=== PATIENT | female | born 1945 | race Caucasian/White ===

== ENCOUNTER → 2016-12-12 | Outpatient (CLI) | payer OTHER ==
[~2016-12-12] MED LIST: ATENOLOL50 MG PO; BENICAR HCT 401 EACH PO; DULOXETINE HCL60 M1 PO; FOLIC ACID1 MG PO; HYDROCODON-ACE1 EAC9 PO; LINEZOLID600 MG PO; LYRICA PO; MELATONIN10 M2 PO; MELOXICAM15 MG PO; OXYCODONE-ACET1 EACH PO; PANTOPRAZOLE SO40 MG PO; XARELTO10 MG PO
--- NOTE | ~2016-12-12 | EKG ---
PATIENT: WINSTON HUFF UNIT #: [id number] Ventricular Rate: 68 BPM Atrial Rate: 68 BPM P-R Interval: 174 ms QRS Duration: 72 ms Q-T Interval: 366 ms QTC Calculation(Bezet): 389 ms P Emmalena: 51 degrees Calculated R Emmalena: 33 degrees Calculated T Emmalena: 62 degrees Diagnosis Line: Normal sinus rhythm Diagnosis Line: Low voltage QRS Diagnosis Line: Borderline ECG Diagnosis Line: No previous ECGs available Diagnosis Line: Confirmed by DIVYA WILKINSON MD ([id number]) on Diagnosis Line: 12/12/2016 4:40:21 PM INTERPRETING MD: MINH CONCEPCION
[2016-12-12 13:43] LABS: BUN/CREATININE RATIO 18.18; CALCIUM SERUM 10.2 mg/dL (8.4-10.2); CREATININE SERUM 1.1 mg/dL (0.6-1.4); GLOM FILT RATE Estimated 51.2 mL/min (>60); POTASSIUM 4.4 mmol/L (3.5-5.1)
== END | disposition home or self-care (01) ==
LOC: CAMB 11:18
PROVIDERS: Orthopaedic Surgery
DX: Z01.818 Encounter for other preprocedural examination (principal); M87.875 Other osteonecrosis, left foot
CPT/HCPCS: 36415; 80048; 85652; 86140; 93005

== ENCOUNTER 2016-12-19 10:48 | Inpatient (IN) | payer OTHER, MEDICARE ==
--- NOTE | ~2016-12-19 | HP ---
Unit #: [id number] #: [id number] Patient: WINSTON HUFF [id number] [address] [address] [id number] MR#: [id number] NAME: WINSTON HUFF. ROOM: Age: Sex: F Admission Date: 12/19/2016 : 1945 Attending Physician: Mayco Kirby M.D. Referring Physician: Mayco Kirby M.D. Primary Care Physician: Frank Delgado HISTORY AND PHYSICAL CHIEF COMPLAINT Left ankle pain and deformity. HISTORY OF PRESENT ILLNESS The patient is a 71-year-old female who has undergone multiple procedures by a hearing aid repairer from [place], [place] to include lateral column lengthening, ankle replacement, and attempted pantalar fusion all with rather devastating results. 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 The patient has failed conservative care. She has a non-plantigrade foot. She has pain with activities of daily living. She is therefore to undergo removal of all hardware and then to undergo tibiotalocalcaneal fusion using a laterally based plate with femoral head allograft and fibular autograft. PAST MEDICAL HISTORY Remarkable for cataracts, hypertension, rheumatoid arthritis, and hypercholesterolemia. HOME MEDICATIONS 1. Atenolol. 2. Benicar. 3. Celebrex. 4. Duloxetine. 5. Folate. 6. Humira pen. 7. Hydroxychloroquine sulfate. 8. Lyrica. 9. Oxycodone 7.5 mg p.o. several times a day as needed for pain. PAST SURGICAL HISTORY Left ankle replacement, left pantalar fusion, hysterectomy, knee replacement, oophorectomy, tonsillectomy, tubal ligation. ALLERGIES None. SOCIAL HISTORY The patient denies alcohol use. She is a nonsmoker. FAMILY HISTORY Arthritis, diabetes, and coronary artery disease. REVIEW OF SYSTEMS Unremarkable. Unit #: [id number] #: [id number] Patient: WINSTON HUFF PHYSICAL EXAMINATION VITAL SIGNS: Height 4 feet, 10 inches; weight 140 pounds; and BMI 29.2. GENERAL: Well developed, well nourished female in no acute distress. HEENT: Pharynx is clear. NECK: Supple without masses. HEART: Reveals a regular sinus rhythm without murmurs or gallops. LUNGS: Clear. ABDOMEN: Soft and nontender without masses or organomegaly. EXTREMITIES: Evaluation of the left foot shows marked pes planus with abduction of the forefoot and prominence of the medial malleolus. The patient has 30 degrees of hindfoot valgus. Ankle motion is surprisingly good with dorsiflexion of 10 degrees and plantar flexion of 25 degrees. Subtalar motion is absent. The first MTP joint motion is very limited. Sensation is intact. Pulses are intact. Motor exam is grossly normal. DIAGNOSTIC STUDIES IMAGING: Standing x-rays of the left ankle show 3 loose screws crossing the tibiotalar joint with erosion of the talar body. The talar head is still intact. IMPRESSION 1. Left talar avascular necrosis. 2. Left ankle joint pseudoarthrosis. 3. Retained left ankle hardware. 4. Leg length discrepancy, 2 cm, left less than right. 5. Retained cannulated ankle screws and lateral column lengthening metal wedge. 6. Rheumatoid arthritis. PLAN The patient has failed conservative care. She will therefore undergo removal of all hardware with tibiotalocalcaneal fusion using a laterally based OrthoHelix TTC plate and fibular autograft. We will use a femoral head allograft to restore height. She may require a Cotton procedure to restore forefoot position. This procedure was described along with a diagram. Risks were discussed to include bleeding, infection, nerve damage, need for further surgery in the future, prolonged recovery time, deep venous thrombosis, pulmonary embolism, nonunion, malunion, and need for possible hardware removal in the future. There is no guarantee of a normal foot. Patient understands she will have to be nonweightbearing for 3 months postoperatively. Dictated by Patricia Neal/jonathan TD: 12/19/2016 06:06 JOB #: [id number] Unit #: [id number] #: [id number] Patient: WINSTON HUFF HISTORY AND PHYSICAL Page 1 of 1 X Mar Kirby MD HISTORY AND PHYSICAL
--- NOTE | ~2016-12-19 | DS ---
Unit #: [id number] #: [id number] Patient: WINSTON HUFF [id number] [address] [place], [place] [address] [id number] I MR#: [id number] NAME: WINSTON HUFF. ROOM: 453 Age: 71 Sex: F Admission Date: 12/19/2016 : 1945 Discharge Date: 12/21/2016 Attending Physician: Mayco Kirby M.D. Referring Physician: Mayco Kirby M.D. Primary Care Physician: Frank Delgado DISCHARGE SUMMARY CHIEF COMPLAINT Left foot pain and deformity. HISTORY OF PRESENT ILLNESS The patient is a 71-year-old female with severe left foot pes abducto planovalgus secondary to multiple operations done elsewhere. She now has ankle joint pseudoarthroses with complete collapse of the talus and marked heel valgus with retained ankle hardware. The patient has a nonplantigrade foot and wears a [place]-type boot. She has a significant leg length discrepancy. Radiographs show collapse of a talar body. The patient is therefore to undergo revision tibiotalocalcaneal fusion using femoral head allograft. HOSPITAL COURSE The patient was taken to the operating room on the date of admission where she underwent left tibiotalocalcaneal fusion with femoral head allograft, distal fibular bone graft, removal of retained foot and ankle hardware, and cotton procedure. The patient had a stable postoperative course. Pain was controlled with oral Percocet and IV morphine HYDROPULPER. She was seen by physical therapy on a daily basis and instructed on how to remain nonweightbearing on her effected side. Dressing was changed on second postoperative day. Her wounds were healing well but she still had loss of sensation on the plantar aspect of the foot. She was ready for discharge on the second postoperative day. FINAL DIAGNOSES 1. Left ankle pseudoarthrosis. 2. Left ankle retained hardware. 3. Severe left foot pes abducto planovalgus deformity. 4. Left talar avascular necrosis. PLAN 1. The patient is discharged home. She will keep the dressing clean, dry, and intact. She will continue ice and elevation and remain strictly nonweightbearing for a total of three months. 2. Followup in my office in 10-14 days for dressing change, suture removal, and cast application. 3. Discharge medications remain the same as her home medications with the addition of [place] 7.5/325 one p.o. q.8 hours p.r.n. pain dispense 50 and Xarelto 10 mg p.o. daily for 12 days. Unit #: [id number] #: [id number] Patient: WINSTON HUFF Dictated by.Patricia Méndez/mary TD: 12/21/2016 09:58 JOB #: [id number] DISCHARGE SUMMARY Page 1 of 1 X Mar Kirby MD X DISCHARGE SUMMARY
--- NOTE | ~2016-12-19 | OR ---
Unit #: [id number] #: [id number] Patient: WINSTON HUFF [id number] [address] [place], [place] [address] [id number] I MR#: [id number] NAME: WINSTON HUFF. ROOM: [facility] Date of Procedure: 12/19/2016 Admission Date: 12/19/2016 Surgeon: Mayco Kirby M.D. : 1945 Attending Physician: Mayco Kirby M.D. Referring Physician: Mayco Kirby M.D. Primary Care Physician: Frank Delgado OPERATIVE REPORT PREOPERATIVE DIAGNOSES 1. Left talar avascular necrosis. 2. Left ankle degenerative arthritis. 3. Severe left pes abducto planovalgus. 4. Left ankle retained hardware. POSTOPERATIVE DIAGNOSES 1. Left talar avascular necrosis. 2. Left ankle degenerative arthritis. 3. Severe left pes abducto planovalgus. 4. Left ankle retained hardware. PROCEDURES PERFORMED 1. Left tibiotalocalcaneal fusion with femoral head allograft (69125, 59121). 2. Left distal fibular bone graft (56205). 3. Left ankle and foot retained hardware removal (29608). 4. Left cotton procedure (dorsal opening wedge osteotomy of medial cuneiform) (74837). ASSISTANTS EMELIA Delvalle and EMELIA Kerr. ANESTHESIA Popliteal saphenous block and general. INDICATIONS FOR SURGERY The patient is a 71-year-old female with severe left foot pes abducto planovalgus deformity secondary to multiple operations done elsewhere. She now has ankle joint pseudarthrosis with complete collapse of the talus and marked heel valgus with retained ankle hardware. The patient has a non-plantigrade foot, which has not responded to treatment with a custom AFO. The patient is therefore to undergo revision tibiotalocalcaneal fusion using femoral head allograft with removal of hardware. We utilized fibular bone for grafting and remove her hardware that was previously placed. DESCRIPTION OF PROCEDURE The patient underwent popliteal saphenous block. She was taken to the operating room and placed in supine position and general anesthetic was induced. The left ankle was identified as the correct operative extremity during the time-out procedure. The IV antibiotic protocol was followed. Unit #: [id number] #: [id number] Patient: WINSTON HUFF The left leg was prepped and draped in the usual sterile fashion. The leg was exsanguinated and the thigh tourniquet inflated to 300 mmHg. The old lateral longitudinal incision over the fibula was utilized for the incision. This was extended proximally 10 cm crossing the tip of the fibula and extending down along the lateral aspect of the calcaneus using the old scar. The fibula was exposed with subperiosteal dissection. The previously placed cannulated screw was identified and removed. The fibula was then morselized with an acetabular reamer and this was used to remove the fibula. The fibular shaft was cut 10 cm proximal to the ankle joint and the fibula was then morselized to be utilized for bone graft later in the case. A second cannulated screw was identified under mini C-arm fluoroscopic control, and the pin was placed into the center of the screw. The screw was removed. The third cannulated screws fixating the ankle joint was in a very difficult location to access and would require us to bisect directly over the neurovascular bundle medially, therefore the ankle joint was opened and the screw was loosened using an osteotome and curved curettes. With some difficulty, we were able to retrieve the screw through the ankle joint. The previously placed metal wedge in the anterior calcaneus for lateral column lengthening was then removed with a power osteotome. Beginning with a 36 mm diameter acetabular reamer, the defect in the ankle joint was reamed from lateral, reaming the tibia, calcaneus, talar neck, and medial malleolus. This was sequentially reamed up to a 44 mm diameter. The fresh frozen femoral head allograft was then secured with two crossed Steinmann pins and humeral head counter reamers were used to ream the cartilage and cortical bone off the femoral head. This corresponded to the diameter which was used to ream the ankle joint, so we used a 44 mm diameter acetabular reamer in the ankle joint and a 44 mm diameter counter reamer for the femoral head and there was a perfect fit when the femoral head was placed into the defect with the flat portion of the neck facing laterally. The ankle was then positioned appropriately in neutral dorsiflexion and 5 degrees of heel valgus and then pinned provisionally with a smooth Steinmann pin placed through the heel across the graft into the tibia. An OrthoHelix TTC plate was applied laterally and fixated with one 4.5 mm diameter screw in the distal tibia. An OrthoHelix 8.0 mm diameter cannulated screw was then placed through the most distal hole in the plate purchasing the calcaneus of the graft and the medial malleolus. Excellent fixation was achieved. Additional screws were then placed in the calcaneus in the graft and into the distal tibia, all 4.5 mm diameter nonlocking cortical screws. A 4 mm bur was then used to decorticate the anterior distal tibial cortex and the superior dorsal aspect of the remaining talus. The morselized bone graft was then laid anteriorly along the ankle. In a similar fashion, the bur was used to decorticate the posterior distal tibia and superior calcaneus and again morselized bone graft was laid posteriorly to the ankle fusion site. Intraoperative C-arm fluoroscopy documented satisfactory graft position. The foot rested in 10 degrees of forefoot varus, therefore a cotton procedure was required. A dorsal longitudinal incision was then made over the medial cuneiform. Subcutaneous tissue was divided. The extensor hallucis longus tendon was retracted. A K-wire was placed in a center-center position in the medial cuneiform and used as a guide to make Unit #: [id number] #: [id number] Patient: WINSTON HUFF a dorsal to plantar osteotomy in the medial cuneiform. This was opened with the power osteotome. The SpeedDate metal 6 mm diameter cotton wedge was impacted into place and the forefoot was in rectus position. All wounds were copiously irrigated. Tourniquet was released with a total tourniquet time of #1, 1 hour 10 minutes and #2, 40 minutes after a 90-minute rest. The deep tissues were closed with 2-0 Vicryl. Subcutaneous tissue was closed with 3-0 Vicryl. Skin was closed with 3-0 nylon horizontal mattress and vertical mattress sutures. Xeroform gauze, dressing, sponges, Webril, and a posterior fiberglass splint were applied. The patient was then transported to the recovery room in stable condition. ESTIMATED BLOOD LOSS 300 mL. COMPLICATIONS None. SPECIMENS None. TOURNIQUET TIME Total was 1 hour 50 minutes. Dictated byAmor Kirby M.D. RTH/roxana TD: 12/20/2016 02:20 JOB #: [id number] OPERATIVE REPORT Page 1 of 1 X Mar Kirby MD PROCEDURE OPERATIVE NOTE
[~2016-12-19 10:48] MED LIST changes: -LINEZOLID600 MG PO; -OXYCODONE-ACET1 EACH PO; -PANTOPRAZOLE SO40 MG PO; -XARELTO10 MG PO
[2016-12-19 22:25] LABS: HEMATOCRIT 31.6 % (35.0-45.0); HEMOGLOBIN 10.2 gm/dL (12.0-16.0)
[2016-12-20 03:26] LABS: HEMATOCRIT 31.2 % (35.0-45.0)
[2016-12-21] MEDS ORDERED: XARELTO10 MG PO (10:17)
[2017-01-19] MEDS ORDERED: PANTOPRAZOLE SO40 MG PO (14:50)
[2017-01-19] MEDS ORDERED: LINEZOLID600 MG PO (14:50)
== END 2016-12-21 12:50 | disposition home or self-care (01) | DRG 493 ==
LOC: CSUR 10:48 → CPACUOF 17:02 → C4B 17:14 → CSUR 17:14 → CPACUOF 17:14 → C4B 12-21 12:50 → CSUR 01-30 10:00
PROVIDERS: Orthopaedic Surgery
PROC: 0SGJ04Z Fusion of Left Tarsal Joint with Internal Fixation Device, Open Approach (ICD-10-PCS; 2016-12-19)
PROC: 0SGJ04Z Fusion of Left Tarsal Joint with Internal Fixation Device, Open Approach (ICD-10-PCS; 2016-12-19)
PROC: 0SGJ07Z Fusion of Left Tarsal Joint with Autologous Tissue Substitute, Open Approach (ICD-10-PCS; 2016-12-19)
PROC: 0SGJ07Z Fusion of Left Tarsal Joint with Autologous Tissue Substitute, Open Approach (ICD-10-PCS; 2016-12-19)
PROC: 0SGJ07Z Fusion of Left Tarsal Joint with Autologous Tissue Substitute, Open Approach (ICD-10-PCS; 2016-12-19)
PROC: 0SPG04Z Removal of Internal Fixation Device from Left Ankle Joint, Open Approach (ICD-10-PCS; 2016-12-19)
PROC: 0QBM0ZZ Excision of Left Tarsal, Open Approach (ICD-10-PCS; 2016-12-19)
PROC: 0SGJ04Z Fusion of Left Tarsal Joint with Internal Fixation Device, Open Approach (ICD-10-PCS; principal; 2016-12-19 13:30)
PROC: 0QBK0ZZ Excision of Left Fibula, Open Approach (ICD-10-PCS; 2016-12-19 13:30)
DX: M87.872 Other osteonecrosis, left ankle (principal); M96.0 Pseudarthrosis after fusion or arthrodesis; I10 Essential (primary) hypertension; Y83.8 Other surgical procedures as the cause of abnormal reaction of the patient, or of later complication, without mention of misadventure at the time of the procedure; Y79.8 Miscellaneous orthopedic devices associated with adverse incidents, not elsewhere classified; H26.9 Unspecified cataract; M06.9 Rheumatoid arthritis, unspecified; E78.00 Pure hypercholesterolemia, unspecified; Z96.662 Presence of left artificial ankle joint; Z90.710 Acquired absence of both cervix and uterus; Z98.51 Tubal ligation status; Q66.89 Other specified congenital deformities of feet; M21.42 Flat foot [pes planus] (acquired), left foot; M79.7 Fibromyalgia
CPT/HCPCS: 85014; 85018; 97116; 97161; 97530; C1713; C1776; G8978-GP; G8979-GP; G8980-GP; J0690; J2250; J2270; J2370; J2405; J2795; J3010

== ENCOUNTER → 2017-01-18 | Outpatient (CLI) | payer OTHER ==
[~2017-01-18] MED LIST changes: +LINEZOLID600 MG PO; +OXYCODONE-ACET1 EACH PO; +PANTOPRAZOLE SO40 MG PO; +XARELTO10 MG PO
[2017-01-18 13:13] LABS: BASOPHIL# 0.2 X10e3 (0-0.3); BASOPHIL% 1.3 % (0-2.5); EOSINOPHIL# 0.5 X10e3 (0-0.7); EOSINOPHIL% 3.4 % (0.0-7.0); HEMATOCRIT 33.2 % (35.0-45.0); HEMOGLOBIN 10.5 gm/dL (12.0-16.0); LYMPHOCYTE# 2.7 X10e3 (1.0-3.5); LYMPHOCYTE% 19.6 % (17.0-45.0); MEAN CELL VOLUME 87.5 FL (83-96); MEAN CORPUSCULAR HEMOGLOBIN 27.7 PG (28-34); MEAN CORPUSCULAR HGB CONC 31.7 g/dL (30-36); MEAN PLATELET VOLUME 9.5 FL (6.5-11.5); MONOCYTE# 1.1 X10e3 (0-1.0); MONOCYTE% 8.2 % (3.0-12.0); NEUTROPHIL# 9.3 X10e3 (1.5-7.1); NEUTROPHIL% 67.5 % (40-75); PLATELET COUNT 308 X10e3 (140-420); RED BLOOD COUNT 3.79 X10e (3.90-5.30); RED CELL DISTRIBUTION WIDTH 15.7 % (11.0-15.5); WHITE BLOOD COUNT 13.7 X10e3 (4.0-10.5)
[2017-01-18 13:14] LABS: DIFF IND NO
== END | disposition home or self-care (01) ==
LOC: CLAB 12:31
PROVIDERS: Orthopaedic Surgery
DX: T81.4XXA Infection following a procedure, initial encounter (principal)
CPT/HCPCS: 36415; 85025; 85652; 86140

== ENCOUNTER 2017-01-23 09:35 | Inpatient (IN) | payer OTHER ==
--- NOTE | ~2017-01-23 | OR ---
Unit #: [id number] #: [id number] Patient: WINSTON HUFF [id number] [address] [place], [place] [address] [id number] I MR#: [id number] NAME: WINSTON HUFF. ROOM: [facility] Date of Procedure: 01/23/2017 Admission Date: 01/23/2017 Surgeon: Mayco Kirby M.D. : 1945 Attending Physician: Mayco Kirby M.D. Referring Physician: Mayco Kirby M.D. Primary Care Physician: Frank Delgado OPERATIVE REPORT PREOPERATIVE DIAGNOSES Postoperative left lateral ankle wound infection. POSTOPERATIVE DIAGNOSIS Postoperative left lateral ankle wound infection. PROCEDURES PERFORMED 1. Left lateral ankle wound debridement and irrigation (77099). 2. Left lateral ankle wound vacuum assisted closure (wound VAC) application (27945). NEGATIVE RETOUCHER None. ANESTHESIA General. INDICATIONS FOR SURGERY The patient is a 71-year-old female with a history of multiple operations on the left ankle culminating in a left tibial talocalcaneal fusion using a femoral head allograft 5 weeks ago. The patient has now developed a dehiscence of her lateral wound with an opening measuring about 5 cm x 2 cm and extension deep into the operative site. The patient is therefore to undergo formal debridement and cultures have grown methicillin-resistant staphylococci aureus. DESCRIPTION OF PROCEDURE The patient was taken to the operating room following marking of her leg in the preoperative anesthesia holding area. She was placed in supine position. General anesthetic was induced. The left leg was again identified as the correct operative location. The left leg was then prepped and draped in the usual sterile fashion. The antibiotic protocol was followed. The edges of the wound were sharply debrided. All and infected tissue in the wound was removed. The plate was exposed in the wound. There was a large amount of bone graft which had been placed posterior to the distal tibia, which was also removed with the rongeur. Aerobic and anaerobic cultures were taken. The wound was then copiously irrigated with 3 L of pulse lavage. The wound VAC was then applied laterally and satisfactory seal was documented. The ankle was then dressed with dressing sponges, cast padding, and Julio wrap. Unit #: [id number] #: [id number] Patient: WINSTON HUFF The patient was then transported to the recovery room in stable condition. ESTIMATED BLOOD LOSS Minimal. COMPLICATIONS None. SPECIMENS Cultures. TOURNIQUET TIME Zero. PLAN The patient will be maintained nonweightbearing in a Cam boot. We will closely follow her wound. She may require removal of all hardware with placement of an external fixator. If her wound does not rapidly improve, I am concerned about the exposure of hardware and in the face of infected hardware, she will most likely require removal of all hardware and placement of an external fixator to allow completion of her fusion. We will follow closely during this hospitalization and treated with IV antibiotics accordingly. Dictated byPatricia Abernathy/roxana TD: 01/24/2017 07:40 JOB #: [id number] OPERATIVE REPORT Page 1 of 1 X Mar Kirby MD X PROCEDURE OPERATIVE NOTE
--- NOTE | ~2017-01-23 | OR ---
Unit #: [id number] #: [id number] Patient: WINSTON HUFF [id number] [address] [place], [place] [address] [id number] MR#: [id number] NAME: WINSTON HUFF. ROOM: [facility] Date of Procedure: 01/30/2017 Admission Date: 01/23/2017 Surgeon: Mayco Kirby M.D. : 1945 Attending Physician: Mayco Kirby M.D. Referring Physician: Mayco Kirby M.D. Primary Care Physician: Frank Delgado OPERATIVE REPORT PREOPERATIVE DIAGNOSES 1. Left ankle infected hardware. 2. Left ankle postoperative wound dehiscence. 3. Status post left tibial talocalcaneal fusion 6 weeks ago. POSTOPERATIVE DIAGNOSES 1. Left ankle infected hardware. 2. Left ankle postoperative wound dehiscence. 3. Status post left tibial talocalcaneal fusion 6 weeks ago. PROCEDURE PERFORMED 1. Left ankle hardware removal (). 2. Left ankle hybrid external fixator application. 3. Left ankle irrigation and debridement (55241). 4. Left ankle application wound vacuum assisted closure device. ASSISTANTS Aleyda Shahid Clymer. ANESTHESIA General. INDICATIONS FOR SURGERY The patient is a 71-year-old female, who underwent left tibial talocalcaneal fusion using femoral head allograft 6 weeks ago. She then experienced a wound dehiscence with wound infection. She was treated with wound debridement and application of wound VAC. Cultures ultimately grew methicillin-resistant Staph aureus. She has been on IV antibiotics. She now has a 5 cm diameter wound with exposed hardware. She is therefore to undergo plate removal and application of a fixator. DESCRIPTION OF PROCEDURE The patient was taken to the operating room and placed in supine position. General anesthetic was induced. The left ankle was identified as the correct operative location. The IV antibiotic protocol was not followed. The left leg was then prepped and draped in the usual sterile fashion. The leg was exsanguinated with gravity and the thigh tourniquet inflated to 300 mmHg. A lateral longitudinal incision was opened proximally and the plate was removed with small and large star screwdrivers. The large cannulated screw running from the posterolateral heel into the tibia was also removed through a separate stab incision. Aerobic and anaerobic cultures were then taken. Aggressive debridement of the wound was then Unit #: [id number] #: [id number] Patient: WINSTON HUFF performed with a rongeur. The wound was then irrigated with 3 L of normal saline pulse lavage. The wound was then closed proximally as much as possible with 2-0 nylon [id number] sutures. This left a defect measuring about 5 cm x 3 cm x 2 cm in depth. The Julio PlusFourSixuy hybrid external fixator foot frame was then applied. A circular ring was placed around the tibia and fixated to the tibia with 2 half pins, one was straight anterior to posterior and a second half pin was placed from anteromedial to posterolateral. The foot plate was then positioned appropriately. The calcaneal pin was placed using Kirk wire from anterolateral to posteromedial calcaneus and this was then tensioned appropriately to 120 kg of tension. A second smoothed small wire was placed from lateral to medial in the posterosuperior calcaneus and this was tensioned to 125 kg and tightened. A third wire was then placed across the forefoot purchasing the metatarsal shafts, 1 through 3. This smooth pin was tensioned to 125 kg and tightened. This was placed to ensure that the ankle did not rest in equinus. All bolts and nuts were then tightened. The foot appeared to be stable. A wound VAC was then applied with silver impregnated sponge. This was cut to fit the defect and then fixed to the skin with appropriate adhesive coverings. An excellent seal was obtained. Additional Xeroform gauze, dressing, sponges, and Julio wraps were applied. The patient was then transported to the recovery room in stable condition. ESTIMATED BLOOD LOSS Minimal. COMPLICATIONS None. SPECIMENS Cultures. TOURNIQUET TIME Approximately 40 minutes. Dictated byPatricia Abernathy/roxana TD: 01/31/2017 05:03 JOB #: [id number] OPERATIVE REPORT Page 1 of 1 X Mar Kirby MD X PROCEDURE OPERATIVE NOTE
--- NOTE | ~2017-01-23 | CO ---
Unit #: [id number] #: [id number] Patient: WINSTON HUFF [id number] [address] [place], [place] [address] [id number] MR#: [id number] NAME: WINSTON HUFF. ROOM: [facility] Age: 71 Sex: F Admission Date: 01/23/2017 : 1945 Attending Physician: Mayco Kirby M.D. Primary Care Physician: Frank Delgado Consultation Date: 01/24/2017 CONSULTATION REPORT REASON FOR CONSULTATION Left ankle infection. HISTORY OF PRESENT ILLNESS This is a 71-year-old female who has had seven surgeries within the last four years for a left ankle and flat foot. The patient reports approximately five weeks ago she had a left tibiotalocalcaneal fusion with femoral head allograft. The patient reports that she had some difficulty with wound healing of her ankle incision. The patient followed up with the surgical team and she had some dehiscence of her wound and cultures were growing MRSA and Enterobacter. The patient was placed on antibiotics but he is unaware of the name. The patient was placed on antibiotics but she is unaware of the name. The patient is status post debridement of the wound yesterday and she was placed on a wound vac. She has continued to get vancomycin and she has been given Kefzol also for the perioperative period. ID was asked to evaluate for further antibiotic management. On discussion with patient, she also reports that she has had some intermittent fevers at home that usually present in the evening up to 102 degrees Fahrenheit. She denies any shortness of breath, chest pain, nausea, vomiting, diarrhea or other wounds. PAST MEDICAL HISTORY 1. Cataracts. 2. Hypertension. 3. Rheumatoid arthritis. 4. Hypercholesterolemia. MEDICATIONS Vancomycin. Other home medications also include Humira. ALLERGIES No known allergies. PAST SURGICAL HISTORY Includes: 1. Multiple ankle surgeries. 2. Knee replacement. 3. Oophorectomy. 4. Tonsillectomy. 5. Tubal ligation. SOCIAL HISTORY The patient denies any tobacco or alcohol abuse. Unit #: [id number] #: [id number] Patient: WINSTON HUFF REVIEW OF SYSTEMS Negative except for as previously mentioned in the History of Present Illness. PHYSICAL EXAMINATION VITAL SIGNS: Temperature is 98.7 with a T-max on admission of 101.5, pulse of 78, blood pressure 128/52 and respiratory rate of 16. GENERAL: This is a no apparent distress female who is resting in the bed comfortably. HEENT/NECK: Her pupils are equal. Her neck is supple. CARDIOVASCULAR: S1, S2. Regular rate and rhythm. PULMONARY: Clear to auscultation bilaterally with no wheezes or rhonchi noted. ABDOMEN: Positive bowel sounds. Soft and nontender. EXTREMITIES: No clubbing or cyanosis. Left ankle is currently in a wound vac. She is able to move her toes up and down. She is also in a brace. DIAGNOSTIC STUDIES LABORATORY: BUN 13, creatinine 1.0, sodium 136, potassium 4.4, chloride 101, CO2 26. Last CRP was 7.9. White blood cell count 13.7, hemoglobin 8.8, hematocrit 27.4, platelets 308 and sed rate 100. Wound cultures from the in the operating room showed Gram-negative rods and Staph aureus. January 15 cultures showed Enterobacter sensitive to cefepime and MRSA with an ABEL of 1. There is no current diagnostic imaging at this time. IMPRESSION This is a 71-year-old female status post multiple ankle surgeries, most recently five weeks ago with a calcaneal talotibial fusion. The patient had some delayed wound healing maybe due to her rheumatoid arthritis and use of biological agents. The patient has developed a polymicrobial infection with MRSA and Enterobacter. She is now status post OR with wound vac placement yesterday. OR cultures are showing both Staph aureus which is suspected to be MRSA and Gram-negative rods which will most likely be Enterobacter per her previous cultures. At this time, would like to continue vancomycin as started by orthopedic surgery and also add Rifampin and, in addition, for her Enterobacter will add cefepime. Patient will need to be followed along closely and I have discussed with the orthopedic team who are also considering removal of all of her hardware depending on patient's clinical response in the next few days. Thank you for allowing us to participate in the care of this patient and further recommendations to follow pending patient's clinical course. Dictated by... Vanda Blankenship A.P.R.N. for Hola Alegria M.D. Andrew TD: 01/24/2017 09:07 JOB #: [id number] Unit #: [id number] #: [id number] Patient: WINSTON HUFF CONSULTATION REPORT Page 1 of 1 X X CONSULTATION REPORT
--- NOTE | ~2017-01-23 | HP ---
Unit #: [id number] #: [id number] Patient: WINSTON HUFF [id number] [address] [place], [place] [address] [id number] O MR#: [id number] NAME: WINSTON HUFF ROOM: Age: Sex: F Admission Date: 01/23/2017 : 1945 Attending Physician: Mayco Kirby M.D. Referring Physician: Mayco Kirby M.D. Primary Care Physician: Frank Delgado HISTORY AND PHYSICAL CHIEF COMPLAINT Left ankle infection. HISTORY OF PRESENT ILLNESS The patient is a 71-year-old female who underwent left tibiotalar calcaneal fusion using a femoral head allograft five weeks ago. She now has worsening open wound on the lateral aspect of the ankle with wound dehiscence and is growing methicillin resistant Staph aureus. She is therefore, admitted for formal debridement. PAST MEDICAL HISTORY Cataracts, hypertension, rheumatoid arthritis, hypercholesterolemia. HOME MEDICATIONS Atenolol, Benicar, Celebrex, duloxetine, folate, Humira pen, hydroxychloroquine, Lyrica and oxycodone. She is also taking Zyvox. ALLERGIES None. PAST SURGICAL HISTORY Multiple left ankle surgeries to include ankle replacement, pantalar fusion, tibiotalar calcaneal fusion with femoral head allografts, knee replacement, oophorectomy, tonsillectomy, tubal ligation. ALLERGIES None. SOCIAL HISTORY The patient is a nonsmoker and nondrinker. She is . FAMILY HISTORY Arthritis, diabetes, coronary artery disease. REVIEW OF SYSTEMS Unremarkable. PHYSICAL EXAMINATION VITAL SIGNS: Height 4'10", weight 140 pounds, BMI 29. GENERAL: Well developed, well nourished female in no acute distress. Pharynx is clear. NECK: Supple without masses. HEART: Regular sinus rhythm without murmurs, or gallops. LUNGS: Clear. Unit #: [id number] #: [id number] Patient: WINSTON HUFF ABDOMEN: Soft and nontender without masses or organomegaly. EXTREMITIES: Evaluation of the left foot demonstrates the ankle to be fused in neutral position. Heel position is neutral. She has a 6 cm diameter wound overlying bilateral ankle, which extends deeply. There is no lymphangitis. There is mild cloudy drainage. Pulses are intact. Sensation is decreased on the dorsal and plantar aspect of the left foot. ADMITTING DIAGNOSIS Left lateral ankle wound dehiscence with ankle infection. PLAN The patient is admitted for formal operative debridement. Hardware will be left intact. Will make a decision regarding application of wound VAC. The procedure was described, along with risks of persistent infection, nerve damage, need for further surgery in the future, prolonged recovery time. She understands the above risks and agrees to proceed. Dictated by Patricia Neal/janeth TD: 01/22/2017 08:47 JOB #: [id number] HISTORY AND PHYSICAL Page 1 of 1 X Mar Kirby MD X HISTORY AND PHYSICAL
--- NOTE | ~2017-01-23 | DS ---
Unit #: [id number] #: [id number] Patient: WINSTON HUFF [id number] [address] [place], [place] [address] [id number] I MR#: [id number] NAME: WINSTON HUFF. ROOM: [facility] Age: 71 Sex: F Admission Date: 01/23/2017 : 1945 Discharge Date: 02/01/2017 Attending Physician: Mayco Kirby M.D. Referring Physician: Mayco Kirby M.D. Primary Care Physician: Frank Delgado DISCHARGE SUMMARY CHIEF COMPLAINT Left ankle infection. HISTORY OF PRESENT ILLNESS The patient is a 71-year-old female who underwent left tibiotalocalcaneal fusion using a femoral head allograft five weeks prior to admission. The patient now has a lateral wound dehiscence with exposed plate. She has had cultures which grew methicillin resistant Staph aureus. She is therefore admitted for formal debridement and possible hardware removal. HOSPITAL COURSE The patient was taken to the operating room on the date of admission where she underwent wound debridement and application of a wound vac. The wound measured 5 cm x 5 cm and 2 cm in depth. Infectious disease was then consulted. Initial preoperative cultures grew MRSA and Enterobacter cloacae. Intraoperative cultures grew Acinetobacter and methicillin resistant Staph aureus. Infectious disease data management consultant placed her on vancomycin and cefepime. A PICC line was placed. It was then decided to have the patient return to the operating room on 01/30/2017 for removal of the plate and placement of a Hybrid external fixator. We replaced the wound vac at that time. Her dressing was changed on the second postoperative day and the wound appeared to be closing well but she still had exposed bone. There was no evidence of ongoing infection at that time. A sterile wet-to-dry dressing was applied on the second postoperative day in preparation for her discharge. Her hemoglobin was 7.9, hematocrit 24.9, white blood cell count 7.5 thousand. Cultures from her second procedure grew no bacteria. FINAL DIAGNOSES 1. Left lateral ankle postoperative wound infection with infected hardware. 2. Five weeks status post left tibiotalocalcaneal fusion with femoral head allograft. DISPOSITION/RECOMMENDATIONS 1. The patient is discharged to rehab. She will stay non-weight bearing on the left leg. She will keep the leg elevated. 2. Pin care should be performed with sterile tip cotton applicators once a day around all pin sites. 3. I am aware of the pressure ulcer on the dorsal mid foot. Sterile dressing will be kept in place using dry gauze. 4. A would vac should be applied at the time of her admission to rehab and this wound vac should be changed every three days. Unit #: [id number] #: [id number] Patient: WINSTON HUFF MEDICATIONS The patient's discharge medications are as follows: 1. Lyrica 150 mg p.o. b.i.d. 2. Atenolol 50 mg p.o. q. a.m. 3. Percocet 5/325, one or two p.o. q.4-6 hours p.r.n. pain. 4. Pantoprazole 40 mg p.o. b.i.d. 5. Cefepime 2 g IV q.8 hours through PICC line. 6. Vancomycin 1.25 g IV daily. Follow up in my office in 1-14 days for wound evaluation. Call [phone] to make the appointment. If there are any questions regarding the patient's wounds, please contact Dr. Kirby, . Dictated byAmor Kirby M.D. ARYA/catia TD: 02/01/2017 11:15 JOB #: [id number] DISCHARGE SUMMARY Page 1 of 1 X Mar Kirby MD X DISCHARGE SUMMARY
--- NOTE | ~2017-01-23 | XA166 ---
[facility] A Service of [facility] RADIOLOGY TEXT RESULTS PATIENT: WINSTON HUFF LOCATION: [facility] 466 : [birth year] UNIT #: [id number] AGE: [address]: Mar Kirby MD SEX: F ORDER DR: [id number] [facility] [address] [place], [place] [address] [id number] I MR#: [id number] Acc #: [id number] NAME: WINSTON HUFF : 1945 SEX: F STUDY DATE/TIME: 01/24/2017 14:13 UNIT: [facility] ROOM: [facility] STUDY DESCRIPTION: XA PICC Line Placement WO Port Attending Physician: Mayco Kirby M.D. Referring Physician: Mayco Kirby M.D. Ordering Physician: Mayco Kirby M.D. Primary Care Physician: Frank Delgado MEDICAL IMAGING REPORT This report is preliminary unless electronic signature is present EXAM PICC line placement under ultrasound and fluoroscopy. HISTORY Long-term antibiotic therapy. PRE-PROCEDURE The procedure was explained to the patient and/or patient field sales representative including risks, benefits, potential complications and potential for alternative forms of treatment. Informed consent was obtained, and prior to initiating the procedure a formal timeout procedure was performed. PROCEDURE Using full standard sterile barrier technique, including caps, gowns, gloves, masks, as well as sterile skin preparation and standard sterile draping, the right arm was prepped and draped in the usual fashion, and real-time sterile ultrasound guidance was used to localize basilic vein and to confirm vessel patency. A hard copy ultrasound image was recorded. After local anesthesia with 1% Xylocaine, the vein was punctured using real-time sterile ultrasound guidance, and an 0.018 guidewire was advanced into the superior vena cava, using fluoroscopic guidance. A 4-Kiswahili single-lumen PICC was then measured to 37 cm and deployed with the tip positioned in the superior vena cava. The position of the line was documented with a radiographic image. The line was secured in place with an adhesive dressing and an antibiotic patch was applied. Total fluoro time was 0.2 minutes. Exposure 3 mGy air kerma. IMPRESSION Successful placement of a 4-Kiswahili single-lumen PowerPICC via the arm under ultrasound and fluoroscopic guidance. The tip of the PICC is in good position in the superior vena cava. [facility] A Service of [facility] RADIOLOGY TEXT RESULTS PATIENT: WINSTON HUFF LOCATION: [place] [address] : [birth year] UNIT #: [id number] AGE: [address]: Mar Kirby MD SEX: F ORDER DR: Dictated by... Syed Simpson M.D. THIS IS AN ELECTRONICALLY VERIFIED REPORT Syed Simpson M.D. at 01/25/2017 7:14 AM BRUCE/eva TD: 01/24/2017 15:40 JOB #: [id number] MEDICAL IMAGING REPORT Page 1 of 1 COPY
--- NOTE | ~2017-01-23 | CO ---
Unit #: [id number] #: [id number] Patient: WINSTON HUFF [id number] [address] [place], [place] [address] [id number] I MR#: [id number] NAME: WINSTON HUFF. ROOM: 466 Age: 71 Sex: F Admission Date: 01/23/2017 : 1945 Attending Physician: Mayco Kirby M.D. Primary Care Physician: Frank Delgado Consultation Date: 01/27/2017 CONSULTATION REPORT REASON FOR CONSULTATION Hypokalemia, medical management. HISTORY OF PRESENT ILLNESS The patient is a very pleasant 71-year-old female, who is admitted secondary to left ankle infection. The patient is a very pleasant 71-year-old female, who has had several surgeries over the past four years secondary to left ankle/complications in regards to a previous surgery, originally admitted under the service of Dr. Kirby, ID services have also been consulted in regards to antibiotic management and have been following the patient as well. At the present time, she has a wound vac which is in place. She is comfortable. We were asked to see secondary to anticoagulation issues, recent hospital admissions secondary to hemoglobin of approximately 4 as well as hypokalemia. PAST MEDICAL HISTORY Prior history of hypertension, rheumatoid arthritis, hyperlipidemia. PAST SURGICAL HISTORY Multiple left ankle surgeries over the past several years, knee replacement, oophorectomy, tonsillectomy, tubal ligation. ALLERGIES Bactrim. CURRENT MEDICATIONS 1. Tenormin 2. Lyrica 3. Protonix 4. Xarelto 5. Colace 6. Cefepime 7. Vancomycin 8. Percocet 5/325 FAMILY HISTORY Positive for diabetes, hypertension. SOCIAL HISTORY The patient resides in [place]. She denies any tobacco use. She denies any illicit drug use. She drinks alcohol only socially. Unit #: [id number] #: [id number] Patient: WINSTON HUFF REVIEW OF SYSTEMS Please see history of present illness, twelve point otherwise negative except for those positive noted in the history of present illness. PHYSICAL EXAMINATION VITAL SIGNS: Temperature 98.7, pulse 79, respiratory rate 20, and blood pressure 151/72. GENERAL APPEARANCE: The patient is a very pleasant 71-year-old female, sitting, no acute distress. HEENT: Head examination: Atraumatic and normocephalic. Ears: Tympanic membranes are dry without any erythema or injection. NECK EXAM: Supple. CVS EXAM: S1 and S2 without murmurs. RESPIRATORY EXAM: Clear. GI/ABDOMEN: Nontender, nondistended. LOWER EXTREMITY EXAM: Left lower extremity has a wound vac which is in place. There is a boot also noted over the left lower extremity. There is no calf tenderness on the right. NEUROLOGIC EXAM: The patient is ANO x3, no evidence of any focal neurological deficits. DIAGNOSTIC STUDIES LABORATORY STUDIES: Do yield a potassium of 2.8, creatinine normal, CBC on January 25, 2017, hemoglobin of 8.4. INITIAL PLAN 1. Hypokalemia, replace with p.o. potassium, IV not needed as the patient is able to tolerate p.o. medications well. 2. Anemia with recent hospital admission secondary to bleeding peptic ulcer. 3. Left ankle infection, status post numerous surgeries in the past. 4. History of hypertension. 5. Rheumatoid arthritis. Thank you, Dr. Kirby, for this consultation, we will replete her potassium level, keep an eye on her hemoglobin. She tells me that she has had a recent hospital admission secondary to bleeding/perforated duodenal ulcer. Details are unclear. Apparently, she was admitted at [place] at an outside hospital. There are no records for me to review. Will place her on Protonix at b.i.d. dosing. She also expresses concerns in regards to C. difficile secondary to prolonged IV antibiotics and therefore probiotic will be added, routine laboratory studies will be ascertained in the morning and we will follow along, if surgery is planned her Xarelto will need to be placed on hold for approximately 24 to 48 hours depending on need prior to surgery. All questions have been answered and discussed with the patient as well as her in detail. Dictated by... Patricia Garcia TD: 01/27/2017 14:13 JOB #: [id number] Unit #: [id number] #: [id number] Patient: WINSTON HUFF CONSULTATION REPORT Page 1 of 1 X Sylvia Waldrop MD X CONSULTATION REPORT
[~2017-01-23 09:35] MED LIST changes: -OXYCODONE-ACET1 EACH PO
[2017-01-23] MEDS ORDERED: OXYCODONE-ACET1 EACH PO (10:34)
[2017-01-23 20:40] LABS: CREATININE SERUM 1.2 mg/dL (0.6-1.4); GLOM FILT RATE Estimated 46.1 mL/min (>60)
[2017-01-24 03:13] LABS: HEMATOCRIT 27.4 % (35.0-45.0); HEMOGLOBIN 8.8 gm/dL (12.0-16.0)
[2017-01-24 03:29] LABS: GLOM FILT RATE Estimated 57.5 mL/min (>60)
[2017-01-25 03:17] LABS: BASOPHIL# 0.1 X10e3 (0-0.3); BASOPHIL% 1.3 % (0-2.5); EOSINOPHIL# 0.4 X10e3 (0-0.7); EOSINOPHIL% 6.8 % (0.0-7.0); HEMOGLOBIN 8.4 gm/dL (12.0-16.0); LYMPHOCYTE# 1.9 X10e3 (1.0-3.5); LYMPHOCYTE% 36.7 % (17.0-45.0); MEAN CELL VOLUME 86.7 FL (83-96); MEAN CORPUSCULAR HEMOGLOBIN 28.1 PG (28-34); MEAN CORPUSCULAR HGB CONC 32.5 g/dL (30-36); MEAN PLATELET VOLUME 8.1 FL (6.5-11.5); MONOCYTE# 0.5 X10e3 (0-1.0); MONOCYTE% 9.8 % (3.0-12.0); NEUTROPHIL# 2.4 X10e3 (1.5-7.1); NEUTROPHIL% 45.4 % (40-75); PLATELET COUNT 256 X10e3 (140-420); RED CELL DISTRIBUTION WIDTH 15.9 % (11.0-15.5); WHITE BLOOD COUNT 5.3 X10e3 (4.0-10.5)
[2017-01-25 03:22] LABS: DIFF IND NO
[2017-01-25 03:53] LABS: ALBUMIN SERUM 2.4 g/dL (3.5-5.0); BILIRUBIN,TOTAL 0.9 mg/dL (0.2-2.0); CALCIUM SERUM 9.1 mg/dL (8.4-10.2); CREATININE SERUM 0.9 mg/dL (0.6-1.4); GLOM FILT RATE Estimated 65.3 mL/min (>60); POTASSIUM 3.6 mmol/L (3.5-5.1); PROTEIN TOTAL SERUM 6.1 g/dL (6.0-8.3)
[2017-01-26 02:32] LABS: HEMATOCRIT 26.6 % (35.0-45.0); HEMOGLOBIN 8.6 gm/dL (12.0-16.0)
[2017-01-27 03:35] LABS: BUN/CREATININE RATIO 12.85; CALCIUM SERUM 9.1 mg/dL (8.4-10.2); CREATININE SERUM 0.7 mg/dL (0.6-1.4); GLOM FILT RATE Estimated 88.4 mL/min (>60)
[2017-01-27 03:37] LABS: POTASSIUM 2.8 mmol/L (3.5-5.1)
[2017-01-28 03:30] LABS: HEMATOCRIT 27.8 % (35.0-45.0); HEMOGLOBIN 8.8 gm/dL (12.0-16.0); MEAN CORPUSCULAR HEMOGLOBIN 27.6 PG (28-34); MEAN CORPUSCULAR HGB CONC 31.7 g/dL (30-36); MEAN PLATELET VOLUME 8.5 FL (6.5-11.5); RED BLOOD COUNT 3.19 X10e (3.90-5.30); RED CELL DISTRIBUTION WIDTH 16.2 % (11.0-15.5); WHITE BLOOD COUNT 8.7 X10e3 (4.0-10.5)
[2017-01-28 03:55] LABS: BUN/CREATININE RATIO 11.66; CALCIUM SERUM 9.5 mg/dL (8.4-10.2); CREATININE SERUM 0.6 mg/dL (0.6-1.4); POTASSIUM 3.6 mmol/L (3.5-5.1)
[2017-01-30 03:36] LABS: HEMATOCRIT 27.1 % (35.0-45.0); HEMOGLOBIN 8.8 gm/dL (12.0-16.0); MEAN CELL VOLUME 86.6 FL (83-96); MEAN CORPUSCULAR HGB CONC 32.4 g/dL (30-36); MEAN PLATELET VOLUME 8.7 FL (6.5-11.5); RED BLOOD COUNT 3.13 X10e (3.90-5.30); RED CELL DISTRIBUTION WIDTH 16.2 % (11.0-15.5); WHITE BLOOD COUNT 8.3 X10e3 (4.0-10.5)
[2017-01-30 03:58] LABS: BUN/CREATININE RATIO 18.33; CALCIUM SERUM 9.5 mg/dL (8.4-10.2); CREATININE SERUM 0.6 mg/dL (0.6-1.4); MAGNESIUM 1.8 mg/dL (1.6-3.0); POTASSIUM 3.4 mmol/L (3.5-5.1)
[2017-01-31 04:21] LABS: HEMATOCRIT 25.5 % (35.0-45.0); HEMOGLOBIN 8.1 gm/dL (12.0-16.0); MEAN CELL VOLUME 86.8 FL (83-96); MEAN CORPUSCULAR HEMOGLOBIN 27.7 PG (28-34); MEAN CORPUSCULAR HGB CONC 31.9 g/dL (30-36); RED BLOOD COUNT 2.94 X10e (3.90-5.30); RED CELL DISTRIBUTION WIDTH 16.3 % (11.0-15.5); WHITE BLOOD COUNT 10.7 X10e3 (4.0-10.5)
[2017-01-31 04:42] LABS: BUN/CREATININE RATIO 17.14; CREATININE SERUM 0.7 mg/dL (0.6-1.4); GLOM FILT RATE Estimated 88.4 mL/min (>60); MAGNESIUM 1.7 mg/dL (1.6-3.0); POTASSIUM 3.8 mmol/L (3.5-5.1)
[2017-02-01 04:25] LABS: HEMATOCRIT 24.9 % (35.0-45.0); HEMOGLOBIN 7.9 gm/dL (12.0-16.0); MEAN CELL VOLUME 87.6 FL (83-96); MEAN CORPUSCULAR HEMOGLOBIN 27.9 PG (28-34); MEAN CORPUSCULAR HGB CONC 31.9 g/dL (30-36); MEAN PLATELET VOLUME 9.5 FL (6.5-11.5); RED BLOOD COUNT 2.84 X10e (3.90-5.30); RED CELL DISTRIBUTION WIDTH 16.9 % (11.0-15.5); WHITE BLOOD COUNT 7.5 X10e3 (4.0-10.5)
[2017-02-01 04:46] LABS: CALCIUM SERUM 9.4 mg/dL (8.4-10.2); CREATININE SERUM 0.9 mg/dL (0.6-1.4); GLOM FILT RATE Estimated 65.3 mL/min (>60); POTASSIUM 3.9 mmol/L (3.5-5.1)
== END 2017-02-01 20:35 | DRG 464 ==
LOC: CSUR 09:35 → CPACUOF 10:39 → CSUR 10:39 → C4C 14:00 → CPACUOF 14:00 → C4C 18:16 → CPACUOF 18:16 → C4C 02-01 20:35
PROVIDERS: Family Medicine; Nurse Practitioner; Nurse Practitioner Family; Orthopaedic Surgery
PROC: 0JBR0ZZ Excision of Left Foot Subcutaneous Tissue and Fascia, Open Approach (ICD-10-PCS; 2017-01-23)
PROC: 02HV33Z Insertion of Infusion Device into Superior Vena Cava, Percutaneous Approach (ICD-10-PCS; 2017-01-24)
PROC: B518YZA Fluoroscopy of Superior Vena Cava using Other Contrast, Guidance (ICD-10-PCS; 2017-01-24)
PROC: B548ZZA Ultrasonography of Superior Vena Cava, Guidance (ICD-10-PCS; 2017-01-24)
PROC: 0QH Lower Bones, Insertion (ICD-10-PCS; 2017-01-30)
PROC: 0SPG04Z Removal of Internal Fixation Device from Left Ankle Joint, Open Approach (ICD-10-PCS; principal; 2017-01-30 18:30)
DX: T84.69XA Infection and inflammatory reaction due to internal fixation device of other site, initial encounter (principal); T81.30XA Disruption of wound, unspecified, initial encounter; E87.1 Hypo-osmolality and hyponatremia; I10 Essential (primary) hypertension; M06.9 Rheumatoid arthritis, unspecified; Z96.662 Presence of left artificial ankle joint; Z96.659 Presence of unspecified artificial knee joint; Z98.51 Tubal ligation status; E78.00 Pure hypercholesterolemia, unspecified; B95.62 Methicillin resistant Staphylococcus aureus infection as the cause of diseases classified elsewhere; E87.6 Hypokalemia; D64.9 Anemia, unspecified; Y79.2 Prosthetic and other implants, materials and accessory orthopedic devices associated with adverse incidents; Z88.2 Allergy status to sulfonamides; Z87.11 Personal history of peptic ulcer disease; E83.42 Hypomagnesemia
CPT/HCPCS: 76937; 77001; 80048; 80053; 80202; 82565; 83735; 84520; 85014; 85018; 85025; 85027; 85652; 86140; 87070; 87075; 87077; 87186; 87205; 94760; C1713; C1751; C9113; J0690; J0692; J1170; J2250; J2270; J2405; J3010; J3370

== ENCOUNTER → 2017-03-05 | Outpatient (CLI) | payer OTHER ==
[~2017-03-05] MED LIST changes: +OXYCODONE-ACET1 EACH PO
[2017-03-05 14:09] LABS: BASOPHIL# 0.1 X10e3 (0-0.3); EOSINOPHIL# 0.9 X10e3 (0-0.7); EOSINOPHIL% 10.1 % (0.0-7.0); HEMATOCRIT 30.2 % (35.0-45.0); HEMOGLOBIN 9.8 gm/dL (12.0-16.0); LYMPHOCYTE# 1.5 X10e3 (1.0-3.5); LYMPHOCYTE% 17.4 % (17.0-45.0); MEAN CELL VOLUME 81.1 FL (83-96); MEAN CORPUSCULAR HEMOGLOBIN 26.5 PG (28-34); MEAN CORPUSCULAR HGB CONC 32.6 g/dL (30-36); MEAN PLATELET VOLUME 9.5 FL (6.5-11.5); MONOCYTE# 1.1 X10e3 (0-1.0); MONOCYTE% 11.9 % (3.0-12.0); NEUTROPHIL# 5.3 X10e3 (1.5-7.1); NEUTROPHIL% 59.6 % (40-75); PLATELET COUNT 191 X10e3 (140-420); RED BLOOD COUNT 3.72 X10e (3.90-5.30); RED CELL DISTRIBUTION WIDTH 15.9 % (11.0-15.5); WHITE BLOOD COUNT 8.8 X10e3 (4.0-10.5)
[2017-03-05 14:14] LABS: DIFF IND NO
== END | disposition home or self-care (01) ==
LOC: CLAB 13:25
PROVIDERS: Orthopaedic Surgery
DX: T81.4XXA Infection following a procedure, initial encounter (principal); B95.62 Methicillin resistant Staphylococcus aureus infection as the cause of diseases classified elsewhere
CPT/HCPCS: 85025; 85652; 86140

== ENCOUNTER → 2017-03-21 | Outpatient (CLI) | payer OTHER ==
--- NOTE | ~2017-03-21 | CT92 ---
[facility] A Service of [facility] & [facility] RADIOLOGY TEXT RESULTS PATIENT: WINSTON HUFF LOCATION: [facility] : [birth year] UNIT #: [id number] AGE: [address]: Mar Kirby MD SEX: F ORDER DR: [id number] [facility] [address] [place], [place] [address] [id number] MR#: [id number] Acc #: [id number] NAME: WINSTON HUFF. : 1945 SEX: F STUDY DATE/TIME: 03/21/2017 9:34 UNIT: [facility] ROOM: STUDY DESCRIPTION: CT Lower Ext Lt Wo Cont Attending Physician: Mayco Kirby M.D. Referring Physician: Mayco Kirby M.D. Ordering Physician: Mayco Kirby M.D. Primary Care Physician: Primary Care Physician No MEDICAL IMAGING REPORT This report is preliminary unless electronic signature is present EXAM CT left lower extremity without contrast HISTORY 71-year-old female, multiple foot and ankle surgeries. Assess tibiotalar calcaneal fusion. Patient in external fixator. COMPARISON CT left lower extremity 10/20/2015 and left ankle films 02/14/2017. TECHNIQUE Thin-section axial images performed through the left lower leg and ankle with multiplanar reconstructions. This CT exam was performed with one or more of the following radiation dose reduction techniques: Automatic exposure control, adjustment of mA and/or kV according to patient size, and iterative reconstruction. The images were obtained with the external fixator in place. FINDINGS There has been resection of a portion of the distal tibia and apparent resection and removal of the talus and placement of a round bone-graft plug, which measures about 4 cm in transverse dimensions. There is partial incorporation of the bone-graft plug to the distal tibia and some incorporation with the calcaneus. A large cystic lesion seen within the medial distal tibia may represent a subchondral cyst. There is some internal matrix; this could potentially represent a enchondroma. Multiple pin and screw tracks are seen within the distal tibia from previous fixation. There is sclerosis and some fragmentation of the remaining calcaneus, particularly the anterior body and anterior process of the calcaneus. Osteopenia noted across the midfoot. Some bone graft material is noted anterior and posterior to the distal tibia, with partial incorporation. The aesdti-br-yqou graft fusion is estimated about 25% fused, and the fusion between the bone graft and the calcaneus is also STS. [facility] A Service of [facility] RADIOLOGY TEXT RESULTS PATIENT: WINSTON HUFF LOCATION: [facility] : 49 UNIT #: [id number] AGE: [address]: Mar Kirby MD SEX: F ORDER DR: estimated around 25% to 50% fused. Generalized soft tissue swelling and edema about the ankle. Patient has undergone resection of the distal fibula. There is a defect along the lateral aspect of the ankle measuring about 2.7 cm in greatest transverse dimensions and about 1.8 cm in depth, which appears to contain surgical packing. IMPRESSION 1. Complex hindfoot fusion procedure where the patient has undergone near-complete resection of the citizen [place] talus as well as partial resection of the distal tibia, and possibly partial resection of portions of the calcaneus. A large, round bone plug has been placed in the position of the [place] talus, with partial fusion across the tibiotalar joint, which is estimated at about 25% to maybe 50% fused. There is also some fusion across the eqhfvxgwh-re-bzbr graft in the subtalar joint and this is estimated about 25% to maybe 50% fused. Generalized osteopenia about the foot and ankle. 2. Sizable cystic lesion in the medial distal tibial plafond measuring about 2.6 cm. This may be degenerative in nature or the sequelae of previous infection, or possibly a chondroid lesion such as enchondroma. 3. Generalized soft tissue swelling and edema about the ankle with a large defect along the lateral aspect of the ankle, with surgical packing as detailed above. No drainable fluid collection or abscess seen. 4. Not mentioned above, fixation pins and external fixator noted. 5. Diffuse osteopenia particularly within the midfoot with previous wedge osteotomy across the dorsal aspect of the midfoot. Dictated by... Carlos Mcginnis M.D. THIS IS AN ELECTRONICALLY VERIFIED REPORT Carlos Mcginnis M.D. at 03/23/2017 4:50 PM Baudilio TD: 03/21/2017 23:44 JOB #: [id number] MEDICAL IMAGING REPORT Page 1 of 1 COPY
== END | disposition home or self-care (01) ==
LOC: CCAT 09:00
DX: T84.498A Other mechanical complication of other internal orthopedic devices, implants and grafts, initial encounter (principal); M85.462 Solitary bone cyst, left tibia and fibula; M79.89 Other specified soft tissue disorders; M85.872 Other specified disorders of bone density and structure, left ankle and foot; M25.472 Effusion, left ankle
CPT/HCPCS: 73700